=== PATIENT | female | born 1970 | race Two or more races ===

== ENCOUNTER → 2017-12-24 | Outpatient (CLI) | payer OTHER ==
[~2017-12-24] MED LIST: KETO10TA2 PO; PROZAC10 MG; SEPTRA DS TABLE1 TAB PO; XANAX2 MG; ZOFRAN4 MG SL
== END | disposition home or self-care (01) ==
LOC: SONOGRAMA 10:33 → RAD 10:33
DX: M12.89 Other specific arthropathies, not elsewhere classified, multiple sites (principal); M19.90 Unspecified osteoarthritis, unspecified site

== ENCOUNTER 2018-01-19 09:33 | Outpatient (CLI) | payer OTHER | END 2018-01-19 09:39 | disposition home or self-care (01) | LOC: TOM 09:33 | DX: R41.2 Retrograde amnesia (principal); G43.909 Migraine, unspecified, not intractable, without status migrainosus | CPT/HCPCS: 70460; Q9965 ==

== ENCOUNTER 2020-10-12 12:38 | Emergency (ER) | payer OTHER ==
[~2020-10-12] VITALS: Ht 160 cm; Wt 68.0 kg
== END 2020-10-12 18:10 | disposition home or self-care (01) ==
LOC: ER 12:38
DX: M79.672 Pain in left foot (principal); R60.0 Localized edema; S90.112S Contusion of left great toe without damage to nail, sequela; W22.8XXS Striking against or struck by other objects, sequela

== ENCOUNTER → 2021-10-29 | Emergency (ER) | payer OTHER ==
[~2021-10-29] VITALS: Ht 160 cm; Wt 72.6 kg
[~2021-10-29] MED LIST changes: +ENALAPRIL MALEA10 MG
== END | disposition left against medical advice (07) ==
LOC: ER 14:11
DX: R55 Syncope and collapse (principal); I10 Essential (primary) hypertension